=== PATIENT | female | born 2000 ===

== ENCOUNTER 2021-11-14 22:10 | Emergency (ER) | payer SELFPAY ==
[2021-11-14 23:42] LABS: Basophils % (Auto) 0.4 % (0.0-1.8); Eosinophils # (Auto) 0.1 K/mm3 (0.0-0.4); Hematocrit 37.7 % (30.3-42.9); Hemoglobin 13.4 gm/dl (10.1-14.3); Lymphocytes # (Auto) 3.5 K/mm3 (1.2-5.4); Lymphocytes % (Auto) 38.5 % (13.4-35.0); Mean Corpuscular HGB Conc 35 % (30-34); Mean Corpuscular Volume 89 fl (79-97); Monocytes # (Auto) 0.6 K/mm3 (0.0-0.8); Monocytes % (Auto) 7.1 % (0.0-7.3); Platelet Count 290 K/mm3 (140-440); Red Blood Count 4.25 M/mm3 (3.65-5.03); Red Cell Distribution Width 13.1 % (13.2-15.2)
[2021-11-14 23:52] LABS: Mucus,Urine 1+ /HPF
[2021-11-14 23:54] LABS: Color,Urine Red (Yellow)
[2021-11-14 23:55] LABS: Bilirubin,Urine Negative (Negative); Blood,Urine Large (Negative); Urobilinogen,Urine < 2.0 mg/dL (<2.0)
--- NOTE | 2021-11-15 01:44 | Emergency Department Report ---
ED Female HPI - General Chief complaint: Vaginal Bleeding Stated complaint: BLEEDING WHILE Time Seen by Provider: 11/15/21 01:22 Source: patient Mode of arrival: Ambulatory Limitations: No Limitations - History of Present Illness Initial comments: 20-year-old female G1, P0 presents emerged from complaining of pelvic cramping on yesterday and then began to have some pain with vaginal bleeding today similar to that of her normal menses for her. Reports no fever, chills, sweats. No nausea, no vomiting MD Complaint: vaginal bleeding -: Gradual Severity: mild Quality: dull Consistency: constant Improves with: none Worsens with: none Are you Now?: Yes Associated Symptoms: denies other symptoms - Related Data Sexually active: Yes Allergies Allergy/AdvReac Type Severity Reaction Status Date / Time No Known Allergies Allergy Unverified 11/14/21 22:50 ED Review of Systems ROS: Stated complaint: BLEEDING WHILE Other details as noted in HPI Comment: All other systems reviewed and negative ED Physical Exam - General Limitations: No Limitations General appearance: alert, in no apparent distress - Head Head exam: Present: atraumatic, normocephalic - Eye Eye exam: Present: normal appearance, PERRL, EOMI Pupils: Present: normal accommodation - ENT ENT exam: Present: normal exam, normal orophraynx, mucous membranes moist, TM's normal bilaterally - Neck Neck exam: Present: normal inspection, full ROM - Respiratory Respiratory exam: Present: normal lung sounds bilaterally. Absent: respiratory distress, wheezes, rales - Cardiovascular Cardiovascular Exam: Present: regular rate, normal rhythm. Absent: bradycardia, tachycardia, systolic murmur, diastolic murmur, rubs, gallop - GI/Abdominal GI/Abdominal exam: Present: soft, normal bowel sounds. Absent: distended, tenderness, guarding - Extremities Exam Extremities exam: Present: normal inspection, full ROM, normal capillary refill - Back Exam Back exam: Present: normal inspection, full ROM. Absent: CVA tenderness (R), CVA tenderness (L) - Neurological Exam Neurological exam: Present: alert, oriented X3, CN II-XII intact, normal gait - Psychiatric Psychiatric exam: Present: normal affect, normal mood - Skin Skin exam: Present: warm, dry, intact, normal color. Absent: rash ED Medical Decision Making - Lab Data Result diagrams: 11/14/21 23:09 - Radiology Data Radiology results: report reviewed [facility] [address] [place] [address] Ultrasound Report Signed Patient: ESTEPHANIA AVINA MR#: [id number] : 2000 Acct:[id number] Age/Sex: 20 / F ADM Date: 11/14/21 Loc: ED Attending Dr: Ordering Physician: JOSEFA GUTHRIE Date of Service: 11/15/21 Procedure(s): US OB <= 14 weeks fetus Accession Number(s): [id number] cc: JOSEFA GUTHRIE ULTRASOUND OBSTETRIC INDICATION / CLINICAL INFORMATION: Vaginal bleeding pain. Clinical Gestational Age (GA) in weeks, days: 6 weeks 4 days, LMP 09/30/2021 TECHNIQUE: Transabdominal. COMPARISON: None available. FINDINGS: GESTATIONAL SAC: Well-defined oval shape and intrauterine in location. Gestational sac measures 13.3 mm, which correlates with an estimated gestational age of 6 weeks 1 day. EDC 07/10/2022 YOLK SAC: No significant abnormality. Uterus measures 8.0 x 3.6 x 4.9 cm. EMBRYO/FETUS: No significant abnormality. - [place]-Rump Length = cm = weeks, days - Heart Rate, beats per minute (if present) = ADNEXA: Right ovary measures 2.2 x 1.4 x 2.1 cm and appears within normal limits. Left ovary not identified. FREE FLUID: Minimal free fluid within the pelvis. ADDITIONAL FINDINGS: None. IMPRESSION: 1. Single intrauterine gestational sac with yolk sac but no definite pole. with estimated sonographic age of 6 weeks 1 day. Surveillance of beta-hCG as well as short-term ultrasound follow- up recommended given the lack of pole and/or heart activity. Signer Name: Kelsey Cortes II, MD Signed: 11/15/2021 3:11 AM Workstation Name: [id number] Transcribed By: ROSE Dictated By: KELSEY CORTES II, MD Electronically Authenticated By: KELSEY CORTES II, MD Signed Date/Time: 11/15/21310 DD/ 1 TD/TT: Print Cancel - Medical Decision Making 20-year-old female this patient presents with vaginal bleeding in the first trimester, differential diagnosis includes ectopic , IUP, month threatened/inevitable , along with a completed . Patient is HDS and without a history of coagulopathy or infectious symptoms. The ultrasound does reveal an IUP at 6 weeks with an elevated hCG quant. No pole is seen however this may be due to the age of ultrasound or an ev olving miscarriage Based on exam history and ED work-up patient presentation is not consistent with an ectopic , life-threatening coagulopathy, trauma, serious bacterial infection, central process or other emergency Critical care attestation.: If time is entered above; I have spent that time in minutes in the direct care of this critically ill patient, excluding procedure time. ED Disposition Clinical Impression: Threatened miscarriage in early Disposition: HOME / SELF CARE / HOMELESS Is pt being admited?: No Does the pt Need Aspirin: No Condition: Stable Instructions: Threatened Miscarriage, Vaginal Bleeding During , First Trimester Additional Instructions: Please follow-up 1 to 2 days to have your hCG reevaluated. Ultrasound showed a of 6 weeks Referrals: [facility] [Provider Group] - 3-5 Days
--- NOTE | 2021-11-15 03:16 | Ultrasound Report ---
ULTRASOUND OBSTETRIC INDICATION / CLINICAL INFORMATION: Vaginal bleeding pain. Clinical Gestational Age (GA) in weeks, days: 6 weeks 4 days, LMP 09/30/2021 TECHNIQUE: Transabdominal. COMPARISON: None available. FINDINGS: GESTATIONAL SAC: Well-defined oval shape and intrauterine in location. Gestational sac measures 13.3 mm, which correlates with an estimated gestational age of 6 weeks 1 day. EDC 07/10/2022 YOLK SAC: No significant abnormality. Uterus measures 8.0 x 3.6 x 4.9 cm. EMBRYO/FETUS: No significant abnormality. - [place]-Rump Length = cm = weeks, days - Heart Rate, beats per minute (if present) = ADNEXA: Right ovary measures 2.2 x 1.4 x 2.1 cm and appears within normal limits. Left ovary not iden tified. FREE FLUID: Minimal free fluid within the pelvis. ADDITIONAL FINDINGS: None. IMPRESSION: 1. Single intrauterine gestational sac with yolk sac but no definite pole. with estimated sonog raphic age of 6 weeks 1 day. Surveillance of beta-hCG as well as short-term ultrasound follow-up muriel mmended given the lack of pole and/or heart activity. Signer Name: Ketan Cortes II, MD Signed: 11/15/2021 3:11 AM Workstation Name: [id number]
[2021-11-15 04:24] VITALS: BP 104/59
== END 2021-11-15 06:11 | disposition home or self-care (01) ==
LOC: ED 22:10
DX: O20.0 Threatened abortion (principal); Z3A.01 Less than 8 weeks gestation of pregnancy
CPT/HCPCS: 36415; 76801; 81001; 84702; 85025; 86900; 86901; 87086; 99284